=== PATIENT | male | born 1935 | race Caucasian/White ===

== ENCOUNTER 2016-11-21 08:46 | Outpatient (CLI) | payer MEDICARE ==
--- NOTE | 2016-11-21 11:52 | MRI ---
LUMBAR SPINE MRI NONCONTRAST; Date: 11/21/16 INDICATION: Lumbar radiculopathy. No prior comparison. FINDINGS: There is generalized marrow heterogeneity throughout the lumbar spine. Multilevel end plate degenera tive change with Schmorl's node formation present. There is Modic Type I end plate degenerative lopez ge of L2 inferiorly, L3 superiorly, and L5 superiorly. There is a focus of predominantly decreased T 1 signal with a few areas of interspersed T1 hyperintensity and T2 hyperintensity, round in morpholo gy, with internal marrow trabeculation noted involving the L1 vertebral body most consistent with an atypical hemangioma. Incidental note if a large retroperitoneal cyst on the right likely arising from right kidney, altho ugh incompletely visualized. Incidental note of involution of fat within the retroperitoneum posteri or to the crux. There is a small parenchymal cyst also seen within the more anterior aspect of the right kidney. L5-S1: Broad based disc osteophyte complex is present with mild narrowing of the central canal and crowding of the bilateral traversing S1 nerve roots. There is mild to moderate bilateral neural foraminal st enosis. L4-5: Disc osteophyte complex results in moderate narrowing of the central canal. There is moderate right and mild to moderate left foraminal stenosis. L3-4: Epidural lipomatosis along with disc osteophyte complex results in moderate to severe central canal stenosis. There is moderate right and mild left neural foraminal narrowing. L2-3: Moderate to severe central canal stenosis on the basis of disc osteophyte complex and epidural lipom atosis. There is mild to moderate left and mild right neural foraminal stenosis. L1-2: There is mild narrowing of the central canal due to disc osteophyte complex. Mild narrowing of the b ilateral neural foramina. Conus medullaris terminates at the inferior L1 level. IMPRESSION: 1. Multilevel degenerative changes throughout the lumbar spine, as outlined above, with superimpose d epidural lipomatosis. 2. Large right retroperitoneal cyst. This likely relates to a right renal cyst although is incomple tely characterized. Follow-up imaging may be obtained as clinically indicated. POS: HODA
--- NOTE | 2016-11-21 12:17 | RAD ---
LUMBAR SPINE FOUR VIEWS: History: 81-year-old male with lumbosacral radiculopathy. FINDINGS: Four views of the lumbar spine including flexion and extension standing lateral views. There is very markedly severe multilevel disc osteophytosis with disc space narrowing, particularly L2-3, L3-4, and L4-5. Very markedly severe multilevel facet arthrosis. No evidence for acute julian yasmin fracture. No evidence for significant malalignment or abnormal translation between flexion and extension. IMPRESSION: Very severe generalized spondylosis without abnormal translation. POS: OFF
== END 2016-11-21 08:47 | disposition home or self-care (01) ==
LOC: MRI 08:46
PROVIDERS: ATTEND Nurse Practitioner Family
DX: M47.26 Other spondylosis with radiculopathy, lumbar region (principal)
CPT/HCPCS: 72120; 72148

== ENCOUNTER 2017-08-09 08:54 | Outpatient (CLI) | payer MEDICARE | END 2017-08-09 08:55 | disposition home or self-care (01) | LOC: LABBT 08:54 | PROVIDERS: ATTEND Neurological Surgery | DX: Z01.818 Encounter for other preprocedural examination (principal); M48.061 Spinal stenosis, lumbar region without neurogenic claudication | CPT/HCPCS: 93005; 93010 ==

== ENCOUNTER 2017-08-15 05:45 | Day surgery (SDC) | payer MEDICARE ==
[2017-08-09 09:19] VITALS: BMI 37.3
--- NOTE | 2017-08-15 01:57 | HP ---
HISTORY OF PRESENT ILLNESS: Mr. Denson is a 81-year-old man, referred to us for evaluation of sever e spinal stenosis and neurogenic claudication with associated MRI performed at [facility] revealing s evere stenosis at L2-L4 centrally. He has attempted epidural steroid injections with Dr. Avila velazquez ith significant improvement. He is now here today after performing a month of physical therapy with also limited improvement. PAST MEDICAL HISTORY: Significant for chronic pain syndrome, diabetes, hypothyroidism, hypotension, BPH. CURRENT MEDICATIONS: Amitriptyline, anastrozole, , insulin, levothyroxine, metformin, nebivolol , valsartan, niacin, pravastatin, sitagliptin, tamsulosin, gabapentin. ALLERGIES: No known drug allergies. PAST SURGICAL HISTORY: Left knee surgery and right knee surgery. PHYSICAL EXAMINATION: On exam, patient is alert and oriented x3. Gait is slightly antalgic. Lower extremity motor strength is normal. IMPRESSION: Lumbar stenosis with neurogenic claudication. PLAN: Dr. Gonsales met with the patient, reviewed imaging, and advocated for an L3 through L4 decompres yasmin. He explained to the patient the risks, benefits, and alternatives to the procedure. The patie nt expressed understanding and would like to move forward with surgery as discussed. I do believe th e patient is mentally competent and capable of making medical decisions for himself and we will move forward with surgery as planned. Sony Malin PA-C, dictating for Dr. Gonsales.
[2017-08-15] MEDS ORDERED: Thrombin 5000 UNITS/5 ML VIAL ONE (06:31)
[2017-08-15] MEDS ORDERED: Bupivacaine PF 0.5% 30 ML VIAL ONE (06:31)
[2017-08-15] MEDS ORDERED: Bupivacaine HCl 0.5%/Epinephrine 1:200,000/PF 30 ml Vial ONE (06:32)
[2017-08-15] MEDS ORDERED: CEFAZOLIN/Water 2 GM/20 ML SYRINGE ONE ×2 (06:33→12:03)
[2017-08-15] MEDS ORDERED: Fentanyl 100 MCG/2 ML VIAL ONE ×3 (07:24→10:30)
[2017-08-15] MEDS ORDERED: Albuterol Sulfate HFA (OR ONLY) ONE (08:21)
[2017-08-15] MEDS ORDERED: Tamsulosin HCl 0.4 MG CAP ONE (09:52)
--- NOTE | 2017-08-15 11:24 | OP ---
DATE OF PROCEDURE: 08/15/2017 SURGEON: Abbe Gonsales M.D. MILLINERY WORKER: Sony Malin PA-C. INDICATION: Pain. DIAGNOSIS: Lumbar stenosis, secondary to epidural lipomatosis. PROCEDURE: L2 through L4 lumbar decompression. ANESTHESIA: General. TECHNIQUE: The patient was brought into the operating room and placed on general anesthesia. He was flipped from a supine or prone position on the operating room table. A linear incision was planned spanning L2 through L4. After prepping and draping and after an appropriate operative pause, the inc ision was created. The soft tissues were swept away from midline. Self-retaining retractors were pl aced in the wound for optimal exposure. After confirming the appropriate level with C-arm fluoroscop y, an Adson rongeur was used to remove the spinous process of L3 and the superior aspect of L4 and th e inferior aspect of L2. High-speed cutting drill bit as well as 2, 3, and 4-mm Kerrisons were then used to perform laminectomies, which extended laterally to encompass the medial aspect of the facet j oints. After removing the yellow ligament, we encountered a copious degree of epidural fat, which wa s carefully suctioned away into the thecal sac was well decompressed. The wound was irrigated. Hemo stasis was maintained throughout. The wound was then closed in anatomic layers and a pressure dressi ng was applied. There were no known procedural complications.
[2017-08-15] MEDS ORDERED: Glycopyrrolate 0.2 MG/ML 5 ML SYRINGE ONE (14:20)
[2017-08-15] MEDS ORDERED: PROPOFOL 200 MG/20 ML VIAL ONE (14:20)
[2017-08-15] MEDS ORDERED: Esmolol 100 MG/10 ML VIAL ONE (14:20)
[2017-08-15] MEDS ORDERED: PROVENTIL INHALER 6.7 G (200 INHALATIONS) ONE (14:20)
[2017-08-15] MEDS ORDERED: Metoclopramide HCl 10 MG/2 ML VIAL ONE (14:20)
[2017-08-15] MEDS ORDERED: Lidocaine 1% PF 5 ML VIAL ONE ×2 (14:20)
[2017-08-15] MEDS ORDERED: Ondansetron HCl/PF 4 MG/2 ML Vial ONE (14:20)
[2017-08-15] MEDS ORDERED: ePHEDrine/0.9% NaCl/PF SYRINGE 50 mg/10 ml ONE (14:20)
== END 2017-08-15 12:25 | disposition home or self-care (01) ==
LOC: SDC 05:45
PROVIDERS: ATTEND Neurological Surgery
PROC: 01NB0ZZ Release Lumbar Nerve, Open Approach (ICD-10-PCS; principal; 2017-08-15)
DX: E88.2 Lipomatosis, not elsewhere classified (principal); M48.062 Spinal stenosis, lumbar region with neurogenic claudication; E11.9 Type 2 diabetes mellitus without complications; G89.4 Chronic pain syndrome; E03.9 Hypothyroidism, unspecified; Z79.82 Long term (current) use of aspirin; Z79.899 Other long term (current) drug therapy; Z79.84 Long term (current) use of oral hypoglycemic drugs
CPT/HCPCS: 76001; 96374; 96375; J0131; J0670; J2001; J2405; J2704; J2765; J3010; S0020

== ENCOUNTER 2021-01-14 09:33 | Outpatient (CLI) | payer MEDICARE ==
[2021-01-14] MEDS ORDERED: Magnevist 469MG/ML 20 ML VIAL ONE (10:15)
== END 2021-01-14 09:34 | disposition home or self-care (01) ==
LOC: BICMRI 09:33
PROVIDERS: ATTEND Internal Medicine Gastroenterology
DX: R79.89 Other specified abnormal findings of blood chemistry (principal); N28.1 Cyst of kidney, acquired; K86.2 Cyst of pancreas; K57.30 Diverticulosis of large intestine without perforation or abscess without bleeding
CPT/HCPCS: 74183; 82565; A9579

== ENCOUNTER 2022-03-02 10:50 | Outpatient (CLI) | payer MEDICARE ==
[2022-03-02 12:50] LABS: #Eosinphils 0.1 10x3/uL (0.0-0.5); #Monocytes 0.6 10x3/uL (0.0-1.1); #Neutrophils 5.5 10x3/uL (1.5-8.4); %Basophils 0.3 % (0.0-2.0); %Eosinophils 1.9 % (0.0-6.0); %Lymphocytes 14.4 % (18.0-47.0); %Monocytes 7.8 % (0.0-10.0); %Neutrophils 75.2 % (40.0-75.0); Hemoglobin 13.6 g/dL (13.5-17.5); Mean Corpuscular HGB CONC 32.3 g/dL (32.0-36.0); Mean Corpuscular Hemoglobin 30.4 pg (27.0-33.0); Mean Corpuscular Volume 94.2 fl (81.2-95.1); Mean Platelet Volume 11.8 fl (7.4-10.4); Platelet Count 199 10x3/uL (150-450); RBC Distribution Width 13.8 % (11.5-14.5); Red Blood Cell (RBC) Count 4.47 10x6/uL (4.32-5.72); White Blood Cell (WBC) Count 7.3 10x3/uL (3.5-10.5)
[2022-03-02 12:58] LABS: ALT (SGPT) 64 U/L (8-55); AST (SGOT) 71 U/L (5-34); Albumin 3.7 g/dL (3.4-4.8); Alkaline Phosphatase 276 U/L (40-110); Anion Gap 14 mmol/L (10-20); BUN (Urea Nitrogen) 12 mg/dL (8.4-25.7); Bilirubin, Direct 0.2 mg/dL (0.1-0.3); Bilirubin, Total 0.5 mg/dL (0.2-1.2); Calc. Creatinine Clearance 0 mL/min (70-130); Calcium 9.4 mg/dL (7.8-10.44); Carbon Dioxide 26 mmol/L (23-31); Chloride 105 mmol/L (98-107); Estimated GFR 86; Glucose 117 mg/dL (83-110); Potassium 4.4 mmol/L (3.5-5.1); Protein, Total 6.9 g/dL (5.8-8.1); Sodium 141 mmol/L (136-145)
== END 2022-03-02 10:51 | disposition home or self-care (01) ==
LOC: LABBT 10:50
PROVIDERS: ATTEND Surgery
DX: Z01.818 Encounter for other preprocedural examination (principal); K80.20 Calculus of gallbladder without cholecystitis without obstruction
CPT/HCPCS: 80048; 80076; 85025; 93005; 93010

== ENCOUNTER 2022-03-07 06:15 | Day surgery (SDC) | payer MEDICARE ==
[2022-03-06 13:25] VITALS: BMI 32.8
[2022-03-07] MEDS ORDERED: Bupivacaine/Epinephrine 0.25% 30 ML VIAL ONE (08:27)
[2022-03-07] MEDS ORDERED: Iopamidol 30 ML ONE (08:27)
[2022-03-07] MEDS ORDERED: CEFAZOLIN 2 GM VIAL ONE (09:19)
[2022-03-07] MEDS ORDERED: Sodium Chloride 0.9% 100 ML ONE (09:19)
[2022-03-07] MEDS ORDERED: fentaNYL PF 100 MCG/2 ML SYRINGE ONE (09:21)
[2022-03-07] MEDS ORDERED: Rocuronium Bromide 10 MG/ML (10ML VIAL) ONE (09:34)
[2022-03-07] MEDS ORDERED: Ondansetron PF 4 MG/2 ML Vial ONE (09:34)
[2022-03-07] MEDS ORDERED: ePHEDrine 50 MG/ML VIAL ONE (09:34)
[2022-03-07] MEDS ORDERED: Glycopyrrolate 0.2 MG/ML 5 ML SYRINGE ONE (09:34)
[2022-03-07] MEDS ORDERED: Lidocaine 1% PF 5 ML VIAL ONE (09:34)
[2022-03-07] MEDS ORDERED: PHENYLEPHRINE-NS 100 MCG/ML 10 ML SYRINGE ONE (09:34)
[2022-03-07] MEDS ORDERED: PROPOFOL 200 MG/20 ML VIAL ONE (09:34)
[2022-03-07] MEDS ORDERED: NEOSTIGMINE 3 MG/3 ML SYR 3 MG/3 ML SYRINGE ONE (09:34)
[2022-03-07] MEDS ORDERED: Fentanyl 100 MCG/2 ML VIAL ONE (11:13)
== END 2022-03-07 13:20 | disposition home or self-care (01) ==
LOC: SDC 06:15
PROVIDERS: ATTEND Surgery
PROC: 0FT44ZZ Resection of Gallbladder, Percutaneous Endoscopic Approach (ICD-10-PCS; principal; 2022-03-07)
PROC: 8E0W4CZ Robotic Assisted Procedure of Trunk Region, Percutaneous Endoscopic Approach (ICD-10-PCS; 2022-03-07)
DX: K80.10 Calculus of gallbladder with chronic cholecystitis without obstruction (principal); E11.9 Type 2 diabetes mellitus without complications; Z79.4 Long term (current) use of insulin; Z79.84 Long term (current) use of oral hypoglycemic drugs; Z79.890 Hormone replacement therapy; Z79.899 Other long term (current) drug therapy
CPT/HCPCS: 47562; 82962; C1776; 36416; 88304; J2405; J2704; J3010; J3490; Q9967

== ENCOUNTER 2022-10-03 15:20 | Emergency (ER) | payer MEDICARE ==
[2022-10-03 17:06] LABS: #Eosinphils 0.1 thou/uL (0.0-0.7); #Monocytes 1.1 thou/uL (0.11-0.59); #Neutrophils 8.5 thou/uL (1.40-6.50); %Basophils 0.1 % (0.0-1.0); %Eosinophils 0.9 % (0.0-10.0); %Lymphocytes 4.2 % (21.0-51.0); %Monocytes 10.4 % (0.0-10.0); %Neutrophils 83.9 % (42.0-75.0); Hematocrit 35.9 % (42.0-52.0); Hemoglobin 11.5 g/dL (14.0-18.0); Mean Corpuscular Hemoglobin 27.4 pg (27.0-31.0); Mean Corpuscular Volume 85.5 fl (78.0-98.0); Mean Platelet Volume 11.9 fL (7.4-10.4); Platelet Count 204 10x3/uL (130-400); RBC Distribution Width 13.4 % (11.5-14.5); White Blood Cell (WBC) Count 10.2 10x3/uL (4.8-10.8)
[2022-10-03 17:28] LABS: ALT (SGPT) 23 U/L (8-55); AST (SGOT) 65 U/L (5-34); Alkaline Phosphatase 255 U/L (40-110); Anion Gap 13 mmol/L (10-20); BUN (Urea Nitrogen) 16 mg/dL (8.4-25.7); Bilirubin, Total 0.6 mg/dL (0.2-1.2); Calc. Creatinine Clearance 0 mL/min (70-130); Calcium 8.9 mg/dL (7.8-10.44); Carbon Dioxide 23 mmol/L (23-31); Chloride 100 mmol/L (98-107); Estimated GFR 85; Globulin 3.7 g/dL (2.4-3.5); Glucose 68 mg/dL (83-110); Lipase 16 U/L (8-78); Potassium 4.1 mmol/L (3.5-5.1); Protein, Total 6.7 g/dL (5.8-8.1); Sodium 132 mmol/L (136-145)
[2022-10-03 18:59] LABS: Bacteria/HPF None Seen HPF (None Seen); Bilirubin Negative (Negative); Blood, Urine 1+ (Negative); CAUTI Indications for Culture Pelvic or flank pain; Clarity Clear (Clear); Glucose, Urine (Dipstick) Greater than 1000 mg/dL (Negative); Ketone, Urine Negative (Negative); Leukocyte 25 Leu/uL (Negative); Nitrite Negative (Negative); Protein, Urine (Dipstick) 10 mg/dL (Neg-Trace); RBC/HPF 0-3 HPF (0-3); Specific Gravity, Urine 1.018 (1.002-1.036); Squamous Epithelial 0-3 HPF (0-3); Urobilinogen Normal mg/dL (Less than 2); WBC/HPF 0-3 HPF (0-3); pH, Urine 5.5 (5.0-9.0)
[2022-10-03 19:01] LABS: Urine Culture Reflex No No
== END 2022-10-03 20:47 | disposition home or self-care (01) ==
LOC: ERS 15:20
DX: C78.7 Secondary malignant neoplasm of liver and intrahepatic bile duct (principal); E11.9 Type 2 diabetes mellitus without complications; Z87.891 Personal history of nicotine dependence
CPT/HCPCS: 36415; 74177; 80053; 81001; 83690; 85025

== ENCOUNTER 2022-10-05 20:23 | Inpatient (IN) | payer MEDICARE ==
[2022-10-05 20:50] LABS: #Eosinphils 0.1 thou/uL (0.0-0.7); #Monocytes 1.2 thou/uL (0.11-0.59); #Neutrophils 11.3 thou/uL (1.40-6.50); %Basophils 0.2 % (0.0-1.0); %Eosinophils 0.4 % (0.0-10.0); %Neutrophils 85.9 % (42.0-75.0); Hematocrit 39.4 % (42.0-52.0); Hemoglobin 12.5 g/dL (14.0-18.0); Mean Corpuscular HGB CONC 31.7 g/dL (32.0-36.0); Mean Corpuscular Hemoglobin 27.4 pg (27.0-31.0); Mean Corpuscular Volume 86.2 fl (78.0-98.0); Platelet Count 298 10x3/uL (130-400); RBC Distribution Width 13.7 % (11.5-14.5); Red Blood Cell (RBC) Count 4.57 mill/uL (4.70-6.10); White Blood Cell (WBC) Count 13.1 10x3/uL (4.8-10.8)
[2022-10-05 21:10] LABS: Bilirubin Negative (Negative); Blood, Urine Negative (Negative); CAUTI Indications for Culture Alt mental st,lethar; Clarity Clear (Clear); Glucose, Urine (Dipstick) Greater than 1000 mg/dL (Negative); Ketone, Urine Negative (Negative); Leukocyte Negative Leu/uL (Negative); Mucous/LPF Rare LPF (<2+); Nitrite Negative (Negative); Protein, Urine (Dipstick) 20 mg/dL (Neg-Trace); RBC/HPF 0-3 HPF (0-3); Specific Gravity, Urine 1.019 (1.002-1.036); Squamous Epithelial 0-3 HPF (0-3); WBC/HPF 0-3 HPF (0-3); pH, Urine 5.5 (5.0-9.0)
[2022-10-05 21:14] LABS: ALT (SGPT) 19 U/L (8-55); AST (SGOT) 66 U/L (5-34); Albumin 3.1 g/dL (3.4-4.8); Alkaline Phosphatase 293 U/L (40-110); Anion Gap 15 mmol/L (10-20); BUN (Urea Nitrogen) 11 mg/dL (8.4-25.7); Bilirubin, Total 0.5 mg/dL (0.2-1.2); Calc. Creatinine Clearance 0 mL/min (70-130); Calcium 9.2 mg/dL (7.8-10.44); Carbon Dioxide 23 mmol/L (23-31); Chloride 104 mmol/L (98-107); Estimated GFR 88; Potassium 3.3 mmol/L (3.5-5.1); Protein, Total 7.1 g/dL (5.8-8.1); Sodium 139 mmol/L (136-145)
[2022-10-05 21:20] LABS: Bacteria/HPF 1+ HPF (None Seen)
[2022-10-05 21:21] LABS: Urine Culture Reflex No No
[2022-10-05 21:32] LABS: Glucose 31 mg/dL (83-110)
[2022-10-05 21:51] LABS: Troponin I 0.019 ng/mL (< 0.028)
[2022-10-05] MEDS ORDERED: Glucagon 1 MG/ML KIT IM PRN (23:08)
[2022-10-05] MEDS ORDERED: Ondansetron ODT 4 MG TAB PO PRN (23:08)
[2022-10-05] MEDS ORDERED: Acetaminophen 650 MG Suppository PR PRN (23:08)
[2022-10-05] MEDS ORDERED: Dextrose 50% Abboject 50 ML SYRINGE SLOW IVP PRN (23:08)
[2022-10-05] MEDS ORDERED: Dextrose 5% in Water 1,000 ML IV PRN (23:08)
[2022-10-05] MEDS ORDERED: Acetaminophen 325 MG TAB PO PRN (23:08)
[2022-10-05] MEDS ORDERED: Potassium Chloride 20 MEQ TAB PO SCH (23:45)
[2022-10-05] MEDS ORDERED: Dextrose 10% in Water 1,000 ML IV SCH (23:45)
[2022-10-05] MEDS ORDERED: Electrolyte Replacement Protocol 1 EACH FS SCH (23:45)
[2022-10-06 01:37] LABS: Phosphorus 2.5 mg/dL (2.3-4.7)
[2022-10-06 04:09] LABS: #Eosinphils 0.1 thou/uL (0.0-0.7); #Monocytes 1.1 thou/uL (0.11-0.59); #Neutrophils 9.2 thou/uL (1.40-6.50); %Basophils 0.1 % (0.0-1.0); %Eosinophils 0.9 % (0.0-10.0); %Lymphocytes 5.6 % (21.0-51.0); %Monocytes 9.6 % (0.0-10.0); %Neutrophils 83.5 % (42.0-75.0); Hematocrit 35.1 % (42.0-52.0); Hemoglobin 11.5 g/dL (14.0-18.0); Mean Corpuscular HGB CONC 32.8 g/dL (32.0-36.0); Mean Corpuscular Hemoglobin 27.4 pg (27.0-31.0); Mean Platelet Volume 11.4 fL (7.4-10.4); Platelet Count 238 10x3/uL (130-400); RBC Distribution Width 13.7 % (11.5-14.5)
[2022-10-06 04:12] LABS: Mean Corpuscular Volume 83.6 fl (78.0-98.0)
[2022-10-06 04:38] LABS: Anion Gap 13 mmol/L (10-20); BUN (Urea Nitrogen) 9 mg/dL (8.4-25.7); Calc. Creatinine Clearance 104 mL/min (70-130); Calcium 8.8 mg/dL (7.8-10.44); Carbon Dioxide 26 mmol/L (23-31); Chloride 101 mmol/L (98-107); Estimated GFR 92; Glucose 71 mg/dL (83-110); Sodium 137 mmol/L (136-145)
[2022-10-06] MEDS: Ondansetron PF 4 MG/2 ML Vial IVP PRN ×2 (04:42→15:51)
[2022-10-06] MEDS: Potassium Chloride 20 MEQ in Premix Bag 1 BAG IVPB SCH ×2 (06:23→10:06)
[2022-10-06] MEDS: Dextrose 10% in Water 1,000 ML IV SCH ×2 (06:24→10:07)
[2022-10-06] MEDS ORDERED: Magnesium 2 GM/50 ML(in water) 2 GM in Premix Bag 1 BAG IVPB SCH (08:00)
[2022-10-06 11:17] LABS: Anion Gap 14 mmol/L (10-20); BUN (Urea Nitrogen) 7 mg/dL (8.4-25.7); Calc. Creatinine Clearance 100 mL/min (70-130); Calcium 8.8 mg/dL (7.8-10.44); Carbon Dioxide 24 mmol/L (23-31); Chloride 100 mmol/L (98-107); Estimated GFR 90; Glucose 139 mg/dL (83-110); Potassium 3.5 mmol/L (3.5-5.1); Sodium 134 mmol/L (136-145)
[2022-10-06] MEDS: Dextrose 5 % And 0.9 % NaCl 1,000 ML IV SCH (18:51)
[2022-10-06] MEDS ORDERED: Metoclopramide HCl 10 MG TAB PO PRN (19:58)
[2022-10-06] MEDS ORDERED: Morphine 2 MG/ML VIAL SLOW IVP PRN (21:00)
[2022-10-07] MEDS: Ondansetron PF 4 MG/2 ML Vial IVP PRN ×2 (03:22→09:34)
[2022-10-07] MEDS: Dextrose 5 % And 0.9 % NaCl 1,000 ML IV SCH (08:38)
[2022-10-07] MEDS ORDERED: Gabapentin 300 MG CAP PO SCH ×2 (10:00→21:00)
[2022-10-07] MEDS: Anastrozole 1 MG TAB PO SCH (10:20)
[2022-10-07] MEDS: Tamsulosin HCl 0.4 MG CAP PO SCH (10:20)
[2022-10-07] MEDS: Amitriptyline HCl 25 MG TAB PO SCH (10:20)
[2022-10-07] MEDS ORDERED: Promethazine HCl 25 MG in Sodium Chloride 0.9% 50 ML IVPB PRN (10:21)
[2022-10-07] MEDS: Fish Oil 1,000 MG CAP PO SCH ×2 (10:22→10:42)
[2022-10-07] MEDS: Cholecalciferol 1,000 UNITS (25 MCG) TAB PO SCH ×2 (10:26→10:42)
[2022-10-07] MEDS ORDERED: Iopamidol-370 76% 500 ML MDV (1 ML CHARGE) ONE (11:42)
[2022-10-07] MEDS ORDERED: Metoclopramide HCl 10 MG/2 ML VIAL IVP SCH ×2 (16:00→22:00)
[2022-10-07] MEDS ORDERED: Furosemide 40 MG/4 ML VIAL SLOW IVP SCH (16:30)
[2022-10-07] MEDS ORDERED: Piperacillin/Tazobactam 4.5 GM in Sodium Chloride 0.9% 100 ML IVPB SCH ×2 (16:45→22:00)
[2022-10-07] MEDS ORDERED: Piperacillin/Tazobactam 3.375 GM in Sodium Chloride 0.9% 100 ML IVPB SCH (17:15)
[2022-10-07 17:57] LABS: #Monocytes 0.9 thou/uL (0.11-0.59); #Neutrophils 17.1 thou/uL (1.40-6.50); %Basophils 0.1 % (0.0-1.0); %Eosinophils 0.1 % (0.0-10.0); %Lymphocytes 2.3 % (21.0-51.0); %Monocytes 4.8 % (0.0-10.0); %Neutrophils 92.1 % (42.0-75.0); Hematocrit 42.1 % (42.0-52.0); Hemoglobin 13.7 g/dL (14.0-18.0); Mean Corpuscular HGB CONC 32.5 g/dL (32.0-36.0); Mean Corpuscular Hemoglobin 27.4 pg (27.0-31.0); Mean Corpuscular Volume 84.2 fl (78.0-98.0); Mean Platelet Volume 10.9 fL (7.4-10.4); Platelet Count 337 10x3/uL (130-400); RBC Distribution Width 13.7 % (11.5-14.5); White Blood Cell (WBC) Count 18.6 10x3/uL (4.8-10.8)
[2022-10-07 18:28] LABS: ALT (SGPT) 18 U/L (8-55); AST (SGOT) 32 U/L (5-34); Albumin 3.1 g/dL (3.4-4.8); Alkaline Phosphatase 257 U/L (40-110); Anion Gap 19 mmol/L (10-20); BUN (Urea Nitrogen) 13 mg/dL (8.4-25.7); Bilirubin, Total 0.9 mg/dL (0.2-1.2); Calc. Creatinine Clearance 63 mL/min (70-130); Calcium 9.5 mg/dL (7.8-10.44); Carbon Dioxide 28 mmol/L (23-31); Chloride 96 mmol/L (98-107); Estimated GFR 65; Globulin 4.4 g/dL (2.4-3.5); Glucose 209 mg/dL (83-110); Potassium 3.7 mmol/L (3.5-5.1); Protein, Total 7.5 g/dL (5.8-8.1); Sodium 139 mmol/L (136-145)
[2022-10-07] MEDS ORDERED: Niacin 500 MG TAB PO SCH (21:00)
[2022-10-07 21:07] LABS: Lactic Acid 5.4 mmol/L (0.5-2.2)
[2022-10-07] MEDS: Piperacillin/Tazobactam 3.375 GM in Sodium Chloride 0.9% 100 ML IVPB SCH (22:35)
[2022-10-08 00:10] LABS: Actual Bicarbonate (HCO3a) 30.2 mEq/L (22-28); CO2 Tension 42.2 mmHg (35.0-45.0); Calcium, Ionized (arterial) 1.17 mmol/L (1.12-1.30); Carboxyhemoglobin (COHb) 2.1 gm% (0.0-3.0); Hematocrit-ABG 43 % (42.0-52.0); Hemoglobin (Hb) 14.7 g/dL (14.0-18.0); Potassium - ABG Lab 3.81 mmol/L (3.70-5.30); pH, Arterial 7.473 (7.35-7.45)
[2022-10-08 00:12] LABS: Puncture Site LRA
[2022-10-08] MEDS: Lactated Ringer's 1,000 ML IV SCH ×3 (00:58→17:32)
[2022-10-08] MEDS: Dextrose 5 % And 0.9 % NaCl 1,000 ML IV SCH (00:59)
[2022-10-08 03:54] LABS: #Monocytes 0.7 thou/uL (0.11-0.59); #Neutrophils 13.7 thou/uL (1.40-6.50); %Basophils 0.1 % (0.0-1.0); %Lymphocytes 3.1 % (21.0-51.0); %Monocytes 4.6 % (0.0-10.0); %Neutrophils 91.6 % (42.0-75.0); Hematocrit 38.2 % (42.0-52.0); Hemoglobin 12.6 g/dL (14.0-18.0); Mean Corpuscular Hemoglobin 27.8 pg (27.0-31.0); Mean Corpuscular Volume 84.1 fl (78.0-98.0); Mean Platelet Volume 11.3 fL (7.4-10.4); Platelet Count 261 10x3/uL (130-400); RBC Distribution Width 13.8 % (11.5-14.5); Red Blood Cell (RBC) Count 4.54 mill/uL (4.70-6.10); White Blood Cell (WBC) Count 14.9 10x3/uL (4.8-10.8)
[2022-10-08 04:13] LABS: Lactic Acid 2.9 mmol/L (0.5-2.2)
[2022-10-08 04:19] LABS: ALT (SGPT) 16 U/L (8-55); AST (SGOT) 27 U/L (5-34); Albumin 2.8 g/dL (3.4-4.8); Alkaline Phosphatase 211 U/L (40-110); Anion Gap 18 mmol/L (10-20); BUN (Urea Nitrogen) 20 mg/dL (8.4-25.7); Bilirubin, Total 0.9 mg/dL (0.2-1.2); Calc. Creatinine Clearance 43 mL/min (70-130); Calcium 9.1 mg/dL (7.8-10.44); Carbon Dioxide 28 mmol/L (23-31); Chloride 96 mmol/L (98-107); Estimated GFR 44; Glucose 214 mg/dL (83-110); Potassium 3.9 mmol/L (3.5-5.1); Protein, Total 6.8 g/dL (5.8-8.1); Sodium 138 mmol/L (136-145)
[2022-10-08] MEDS: Piperacillin/Tazobactam 3.375 GM in Sodium Chloride 0.9% 100 ML IVPB SCH ×2 (05:29→14:01)
[2022-10-08] MEDS: Levothyroxine Sodium 125 MCG TAB PO SCH (06:40)
[2022-10-08] MEDS ORDERED: Gabapentin 300 MG CAP PO SCH (09:00)
[2022-10-08] MEDS: Amitriptyline HCl 25 MG TAB PO SCH (09:10)
[2022-10-08] MEDS: Anastrozole 1 MG TAB PO SCH (09:10)
[2022-10-08] MEDS: Nebivolol HCl 5 MG TAB PO SCH (09:10)
[2022-10-08] MEDS: Cholecalciferol 1,000 UNITS (25 MCG) TAB PO SCH (09:10)
[2022-10-08] MEDS: Tamsulosin HCl 0.4 MG CAP PO SCH (09:10)
[2022-10-08] MEDS: Fish Oil 1,000 MG CAP PO SCH (09:10)
[2022-10-08] MEDS ORDERED: D5W-AA 4.25% with LYTES 1,000 ML IV SCH (18:30)
[2022-10-08] MEDS ORDERED: Fentanyl 250 MCG/5 ML VIAL ONE (20:43)
[2022-10-08] MEDS ORDERED: Phenylephrine 10 MG/ML VIAL ONE (20:43)
[2022-10-08] MEDS ORDERED: Albumin 5% 250 ML ONE (20:43)
[2022-10-08] MEDS ORDERED: Lidocaine 1% PF 5 ML VIAL ONE (21:00)
[2022-10-08] MEDS ORDERED: Rocuronium Bromide 10 MG/ML (10ML VIAL) ONE (21:00)
[2022-10-08] MEDS ORDERED: PROPOFOL 200 MG/20 ML VIAL ONE (21:00)
[2022-10-08] MEDS ORDERED: Ondansetron PF 4 MG/2 ML Vial ONE (21:00)
[2022-10-08] MEDS ORDERED: Dexamethasone 20 MG/5 ML VIAL ONE (21:00)
[2022-10-08] MEDS ORDERED: Piperacillin/Tazobactam 3.375 GM VIAL ONE (21:22)
[2022-10-08] MEDS ORDERED: SUGAMMADEX SODIUM 200 MG/2 ML VIAL ONE (21:41)
[2022-10-08] MEDS ORDERED: fentaNYL PF 100 MCG/2 ML SYRINGE ONE (23:02)
[2022-10-08] MEDS ORDERED: Ondansetron HCl/PF 4 MG/2 ML Vial IVP PRN (23:12)
[2022-10-08] MEDS ORDERED: Promethazine HCl 25 MG/ML VIAL IM PRN ×2 (23:12→23:23)
[2022-10-08] MEDS ORDERED: Naloxone HCl 0.4 mg/ml Vial IV PRN (23:23)
[2022-10-08] MEDS ORDERED: diphenhydrAMINE 25 MG CAP PO PRN (23:23)
[2022-10-08] MEDS ORDERED: HYDROmorphone 10 mg/100 ml CADD IVPB PRN (23:23)
[2022-10-08] MEDS ORDERED: Ondansetron PF 4 MG/2 ML Vial IVP PRN (23:23)
[2022-10-08] MEDS ORDERED: diphenhydrAMINE 50 MG/ML VIAL IM PRN (23:23)
[2022-10-08] MEDS ORDERED: diphenhydrAMINE 50 MG/ML VIAL IVP PRN (23:23)
[2022-10-08] MEDS ORDERED: Communication Order-Pharmacy FS SCH (23:30)
[2022-10-08] MEDS ORDERED: fentaNYL 50 mcg/mL 1 mL Vial ONE (23:49)
[2022-10-09] MEDS ORDERED: fentaNYL 50 mcg/mL 1 mL Vial ONE (00:19)
[2022-10-09] MEDS: Piperacillin/Tazobactam 3.375 GM in Sodium Chloride 0.9% 100 ML IVPB SCH ×4 (01:26→21:00)
[2022-10-09] MEDS: Pantoprazole 40 MG VIAL IVP SCH ×3 (01:26→20:51)
[2022-10-09 04:11] LABS: #Monocytes 0.5 thou/uL (0.11-0.59); #Neutrophils 13.8 thou/uL (1.40-6.50); %Basophils 0.1 % (0.0-1.0); %Eosinophils 0.1 % (0.0-10.0); %Lymphocytes 2.8 % (21.0-51.0); %Monocytes 3.4 % (0.0-10.0); %Neutrophils 93.3 % (42.0-75.0); Hematocrit 36.6 % (42.0-52.0); Hemoglobin 11.5 g/dL (14.0-18.0); Mean Corpuscular HGB CONC 31.4 g/dL (32.0-36.0); Mean Corpuscular Hemoglobin 27.6 pg (27.0-31.0); Mean Platelet Volume 11.3 fL (7.4-10.4); Platelet Count 237 10x3/uL (130-400); RBC Distribution Width 14.2 % (11.5-14.5); Red Blood Cell (RBC) Count 4.16 mill/uL (4.70-6.10); White Blood Cell (WBC) Count 14.8 10x3/uL (4.8-10.8)
[2022-10-09 04:40] LABS: ALT (SGPT) 16 U/L (8-55); AST (SGOT) 35 U/L (5-34); Albumin 2.7 g/dL (3.4-4.8); Alkaline Phosphatase 174 U/L (40-110); Anion Gap 15 mmol/L (10-20); BUN (Urea Nitrogen) 26 mg/dL (8.4-25.7); Bilirubin, Total 1.1 mg/dL (0.2-1.2); Calc. Creatinine Clearance 50 mL/min (70-130); Calcium 8.8 mg/dL (7.8-10.44); Carbon Dioxide 34 mmol/L (23-31); Chloride 96 mmol/L (98-107); Estimated GFR 55; Globulin 3.7 g/dL (2.4-3.5); Glucose 213 mg/dL (83-110); Magnesium 2.3 mg/dL (1.6-2.6); Phosphorus 4.1 mg/dL (2.3-4.7); Potassium 3.6 mmol/L (3.5-5.1); Protein, Total 6.4 g/dL (5.8-8.1); Sodium 141 mmol/L (136-145)
[2022-10-09] MEDS: Levothyroxine Sodium 125 MCG TAB PO SCH (07:06)
[2022-10-09] MEDS: Lactated Ringer's 1,000 ML IV SCH ×2 (10:00)
[2022-10-09] MEDS: Tamsulosin HCl 0.4 MG CAP PO SCH (10:02)
[2022-10-09] MEDS: Nebivolol HCl 5 MG TAB PO SCH (10:02)
[2022-10-09] MEDS: Fish Oil 1,000 MG CAP PO SCH (10:02)
[2022-10-09] MEDS: Anastrozole 1 MG TAB PO SCH (10:02)
[2022-10-09] MEDS: Amitriptyline HCl 25 MG TAB PO SCH (10:02)
[2022-10-09] MEDS: 1/2 NS w/KCL 20 mEq 1,000 ML IV SCH ×2 (12:18→21:03)
[2022-10-09] MEDS: HumaLOG 300 UNITS/3 ML VIAL SC PRN ×3 (12:22→20:58)
[2022-10-09] MEDS: D5W-AA 4.25% with LYTES 1,000 ML IV SCH (15:56)
[2022-10-10] MEDS: 1/2 NS w/KCL 20 mEq 1,000 ML IV SCH (03:45)
[2022-10-10 05:35] LABS: #Eosinphils 0.2 thou/uL (0.0-0.7); #Monocytes 0.6 thou/uL (0.11-0.59); #Neutrophils 12.2 thou/uL (1.40-6.50); %Basophils 0.1 % (0.0-1.0); %Eosinophils 1.5 % (0.0-10.0); %Monocytes 4.4 % (0.0-10.0); %Neutrophils 89.5 % (42.0-75.0); Hematocrit 34.8 % (42.0-52.0); Hemoglobin 10.7 g/dL (14.0-18.0); Mean Corpuscular HGB CONC 30.7 g/dL (32.0-36.0); Mean Corpuscular Hemoglobin 27.7 pg (27.0-31.0); Mean Corpuscular Volume 90.2 fl (78.0-98.0); Mean Platelet Volume 11.3 fL (7.4-10.4); Platelet Count 195 10x3/uL (130-400); RBC Distribution Width 14.2 % (11.5-14.5); Red Blood Cell (RBC) Count 3.86 mill/uL (4.70-6.10); White Blood Cell (WBC) Count 13.6 10x3/uL (4.8-10.8)
[2022-10-10] MEDS: Levothyroxine Sodium 125 MCG TAB PO SCH (05:47)
[2022-10-10] MEDS: Piperacillin/Tazobactam 3.375 GM in Sodium Chloride 0.9% 100 ML IVPB SCH ×3 (05:47→21:35)
[2022-10-10] MEDS: HumaLOG 300 UNITS/3 ML VIAL SC PRN ×5 (05:48→23:56)
[2022-10-10] MEDS: D5W-AA 4.25% with LYTES 1,000 ML IV SCH ×2 (05:49→18:39)
[2022-10-10 06:01] LABS: ALT (SGPT) 15 U/L (8-55); AST (SGOT) 38 U/L (5-34); Albumin 2.6 g/dL (3.4-4.8); Alkaline Phosphatase 145 U/L (40-110); Anion Gap 11 mmol/L (10-20); BUN (Urea Nitrogen) 27 mg/dL (8.4-25.7); Bilirubin, Total 1.1 mg/dL (0.2-1.2); Calc. Creatinine Clearance 65 mL/min (70-130); Calcium 8.5 mg/dL (7.8-10.44); Carbon Dioxide 34 mmol/L (23-31); Chloride 100 mmol/L (98-107); Estimated GFR 78; Globulin 3.3 g/dL (2.4-3.5); Glucose 206 mg/dL (83-110); Protein, Total 5.9 g/dL (5.8-8.1); Sodium 141 mmol/L (136-145)
[2022-10-10] MEDS ORDERED: LYTES IV SCH (09:00)
[2022-10-10] MEDS ORDERED: D5W AA 4.25% IV SCH (09:00)
[2022-10-10] MEDS ORDERED: HUMULIN R IV SCH (09:00)
[2022-10-10] MEDS: Fish Oil 1,000 MG CAP PO SCH (09:25)
[2022-10-10] MEDS: Pantoprazole 40 MG VIAL IVP SCH ×2 (09:26→20:48)
[2022-10-10] MEDS: Nebivolol HCl 5 MG TAB PO SCH (09:26)
[2022-10-10] MEDS: Tamsulosin HCl 0.4 MG CAP PO SCH (09:27)
[2022-10-10] MEDS: Anastrozole 1 MG TAB PO SCH (09:27)
[2022-10-10] MEDS: Amitriptyline HCl 25 MG TAB PO SCH (09:27)
[2022-10-10] MEDS ORDERED: HumaLOG 300 UNITS/3 ML VIAL SC SCH (09:30)
[2022-10-10] MEDS: Sodium Chloride 0.9% 1,000 ML IV SCH (11:08)
[2022-10-10 11:26] LABS: O2 Tension (PaO2), arterial 45.8 mmHg (> 60.0)
[2022-10-11] MEDS: HumaLOG 300 UNITS/3 ML VIAL SC PRN ×3 (04:01→17:45)
[2022-10-11 04:17] LABS: #Monocytes 0.8 thou/uL (0.11-0.59); %Basophils 0.1 % (0.0-1.0); %Eosinophils 0.2 % (0.0-10.0); %Lymphocytes 2.2 % (21.0-51.0); %Monocytes 4.8 % (0.0-10.0); %Neutrophils 92.1 % (42.0-75.0); Hematocrit 37.5 % (42.0-52.0); Hemoglobin 11.8 g/dL (14.0-18.0); Mean Corpuscular HGB CONC 31.5 g/dL (32.0-36.0); Mean Corpuscular Hemoglobin 27.4 pg (27.0-31.0); Mean Platelet Volume 11.4 fL (7.4-10.4); Platelet Count 182 10x3/uL (130-400); White Blood Cell (WBC) Count 17.3 10x3/uL (4.8-10.8)
[2022-10-11 04:26] LABS: Mean Corpuscular Volume 87.2 fl (78.0-98.0)
[2022-10-11 04:45] LABS: ALT (SGPT) 22 U/L (8-55); AST (SGOT) 76 U/L (5-34); Albumin 2.4 g/dL (3.4-4.8); Alkaline Phosphatase 190 U/L (40-110); Anion Gap 15 mmol/L (10-20); BUN (Urea Nitrogen) 22 mg/dL (8.4-25.7); Bilirubin, Total 1.7 mg/dL (0.2-1.2); Calc. Creatinine Clearance 75 mL/min (70-130); Calcium 8.6 mg/dL (7.8-10.44); Carbon Dioxide 27 mmol/L (23-31); Chloride 101 mmol/L (98-107); Estimated GFR 85; Globulin 4.1 g/dL (2.4-3.5); Glucose 206 mg/dL (83-110); Potassium 4.6 mmol/L (3.5-5.1); Protein, Total 6.5 g/dL (5.8-8.1); Sodium 138 mmol/L (136-145)
[2022-10-11] MEDS: Piperacillin/Tazobactam 3.375 GM in Sodium Chloride 0.9% 100 ML IVPB SCH ×3 (05:13→22:13)
[2022-10-11] MEDS: Levothyroxine Sodium 125 MCG TAB PO SCH (05:16)
[2022-10-11] MEDS: D5W-AA 4.25% with LYTES 1,000 ML IV SCH ×2 (08:02→20:09)
[2022-10-11] MEDS: Anastrozole 1 MG TAB PO SCH (09:08)
[2022-10-11] MEDS: Amitriptyline HCl 25 MG TAB PO SCH (09:08)
[2022-10-11] MEDS: Nebivolol HCl 5 MG TAB PO SCH (09:08)
[2022-10-11] MEDS: Pantoprazole 40 MG VIAL IVP SCH ×2 (09:08→20:24)
[2022-10-11] MEDS: Tamsulosin HCl 0.4 MG CAP PO SCH (09:08)
[2022-10-11] MEDS: Fish Oil 1,000 MG CAP PO SCH (09:09)
[2022-10-11] MEDS: Sodium Chloride 0.9% 1,000 ML IV SCH (09:09)
[2022-10-11] MEDS ORDERED: fentaNYL 50 mcg/mL 1 mL Vial SLOW IVP PRN (11:52)
[2022-10-11] MEDS: Ketorolac Tromethamine 30 MG/ML VIAL IVP SCH ×2 (13:03→17:45)
[2022-10-12] MEDS: Ketorolac Tromethamine 30 MG/ML VIAL IVP SCH ×3 (06:04→10:50)
[2022-10-12] MEDS: Levothyroxine Sodium 125 MCG TAB PO SCH (06:05)
[2022-10-12] MEDS: HumaLOG 300 UNITS/3 ML VIAL SC PRN ×3 (06:06→12:44)
[2022-10-12 06:13] LABS: #Eosinphils 0.1 thou/uL (0.0-0.7); #Monocytes 0.7 thou/uL (0.11-0.59); #Neutrophils 12.9 thou/uL (1.40-6.50); %Basophils 0.1 % (0.0-1.0); %Eosinophils 0.8 % (0.0-10.0); %Lymphocytes 3.2 % (21.0-51.0); %Neutrophils 90.3 % (42.0-75.0); Hematocrit 35.6 % (42.0-52.0); Mean Corpuscular HGB CONC 30.9 g/dL (32.0-36.0); Mean Corpuscular Hemoglobin 27.5 pg (27.0-31.0); Mean Platelet Volume 11.5 fL (7.4-10.4); Platelet Count 149 10x3/uL (130-400); RBC Distribution Width 14.2 % (11.5-14.5); White Blood Cell (WBC) Count 14.3 10x3/uL (4.8-10.8)
[2022-10-12 08:43] LABS: Albumin 2.5 g/dL (3.4-4.8)
[2022-10-12 08:44] LABS: Calcium 8.8 mg/dL (7.8-10.44); Chloride 101 mmol/L (98-107); Potassium 3.8 mmol/L (3.5-5.1); Sodium 137 mmol/L (136-145)
[2022-10-12 08:45] LABS: Globulin 3.7 g/dL (2.4-3.5); Glucose 230 mg/dL (83-110); Protein, Total 6.2 g/dL (5.8-8.1)
[2022-10-12 08:47] LABS: Anion Gap 11 mmol/L (10-20); Bilirubin, Total 1.8 mg/dL (0.2-1.2); Carbon Dioxide 29 mmol/L (23-31)
[2022-10-12 08:48] LABS: Alkaline Phosphatase 194 U/L (40-110)
[2022-10-12 08:49] LABS: BUN (Urea Nitrogen) 25 mg/dL (8.4-25.7); Calc. Creatinine Clearance 77 mL/min (70-130); Estimated GFR 86
[2022-10-12 08:50] LABS: AST (SGOT) 62 U/L (5-34)
[2022-10-12 08:51] LABS: ALT (SGPT) 22 U/L (8-55)
[2022-10-12] MEDS: D5W-AA 4.25% with LYTES 1,000 ML IV SCH ×2 (09:27→21:57)
[2022-10-12 09:53] VITALS: BMI 29.5
[2022-10-12] MEDS: Nebivolol HCl 5 MG TAB PO SCH (10:30)
[2022-10-12] MEDS: Anastrozole 1 MG TAB PO SCH (10:31)
[2022-10-12] MEDS: Fish Oil 1,000 MG CAP PO SCH (10:31)
[2022-10-12] MEDS: Amitriptyline HCl 25 MG TAB PO SCH (10:32)
[2022-10-12] MEDS: Tamsulosin HCl 0.4 MG CAP PO SCH (10:32)
[2022-10-12] MEDS: Pantoprazole 40 MG VIAL IVP SCH (10:33)
[2022-10-12] MEDS: Sodium Chloride 0.9% 1,000 ML IV SCH ×2 (12:22→21:49)
[2022-10-12 12:29] LABS: Hematocrit 34.5 % (42.0-52.0); Hemoglobin 10.8 g/dL (14.0-18.0); Mean Corpuscular HGB CONC 31.3 g/dL (32.0-36.0); Mean Corpuscular Hemoglobin 27.6 pg (27.0-31.0); Mean Platelet Volume 12.3 fL (7.4-10.4); Platelet Count 150 10x3/uL (130-400); RBC Distribution Width 14.2 % (11.5-14.5); Red Blood Cell (RBC) Count 3.92 mill/uL (4.70-6.10); White Blood Cell (WBC) Count 14.2 10x3/uL (4.8-10.8)
[2022-10-12 12:43] LABS: Prothrombin Time 23.9 sec (12.0-14.7)
[2022-10-12] MEDS: Pantoprazole 80 MG in Sodium Chloride 0.9% 100 ML IVPB SCH ×2 (13:20→22:02)
[2022-10-12] MEDS ORDERED: Phytonadione 10 MG/ML AMP SC SCH (21:30)
[2022-10-12] MEDS ORDERED: Haloperidol Lactate 5 MG/ML VIAL ONE (23:57)
[2022-10-13] MEDS ORDERED: Haloperidol Lactate 5 MG/ML VIAL IM SCH (01:00)
[2022-10-13] MEDS: Levothyroxine Sodium 125 MCG TAB PO SCH (05:00)
[2022-10-13] MEDS: HumaLOG 300 UNITS/3 ML VIAL SC PRN ×3 (05:23→22:05)
[2022-10-13] MEDS ORDERED: Pantoprazole 80 MG, Admixture Fee 1 EACH in Sodium Chloride 0.9% 100 ML IVPB SCH (07:30)
[2022-10-13] MEDS: Sodium Chloride 0.9% 1,000 ML IV SCH (07:56)
[2022-10-13] MEDS: Pantoprazole 80 MG in Sodium Chloride 0.9% 100 ML IVPB SCH (08:42)
[2022-10-13] MEDS: Amitriptyline HCl 25 MG TAB PO SCH (08:42)
[2022-10-13] MEDS: Anastrozole 1 MG TAB PO SCH (08:42)
[2022-10-13] MEDS: Fish Oil 1,000 MG CAP PO SCH (08:43)
[2022-10-13] MEDS: Tamsulosin HCl 0.4 MG CAP PO SCH (08:43)
[2022-10-13] MEDS: Nebivolol HCl 5 MG TAB PO SCH (09:15)
[2022-10-13 10:30] LABS: #Eosinphils 0.1 thou/uL (0.0-0.7); #Monocytes 1.1 thou/uL (0.11-0.59); #Neutrophils 13.5 thou/uL (1.40-6.50); %Basophils 0.1 % (0.0-1.0); %Eosinophils 0.5 % (0.0-10.0); %Lymphocytes 3.4 % (21.0-51.0); %Neutrophils 88.3 % (42.0-75.0); Hematocrit 35.5 % (42.0-52.0); Hemoglobin 10.8 g/dL (14.0-18.0); Mean Corpuscular HGB CONC 30.4 g/dL (32.0-36.0); Mean Corpuscular Hemoglobin 26.9 pg (27.0-31.0); Mean Corpuscular Volume 88.5 fl (78.0-98.0); Mean Platelet Volume 12.8 fL (7.4-10.4); Platelet Count 200 10x3/uL (130-400); RBC Distribution Width 14.3 % (11.5-14.5); Red Blood Cell (RBC) Count 4.01 mill/uL (4.70-6.10); White Blood Cell (WBC) Count 15.3 10x3/uL (4.8-10.8)
[2022-10-13 11:01] LABS: ALT (SGPT) 25 U/L (8-55); AST (SGOT) 62 U/L (5-34); Albumin 2.4 g/dL (3.4-4.8); Alkaline Phosphatase 210 U/L (40-110); Anion Gap 11 mmol/L (10-20); BUN (Urea Nitrogen) 20 mg/dL (8.4-25.7); Bilirubin, Total 2.6 mg/dL (0.2-1.2); Calc. Creatinine Clearance 83 mL/min (70-130); Calcium 8.7 mg/dL (7.8-10.44); Carbon Dioxide 26 mmol/L (23-31); Estimated GFR 88; Globulin 3.9 g/dL (2.4-3.5); Glucose 176 mg/dL (83-110); Potassium 3.9 mmol/L (3.5-5.1); Protein, Total 6.3 g/dL (5.8-8.1); Sodium 136 mmol/L (136-145)
[2022-10-13 11:05] LABS: Chloride 103 mmol/L (98-107)
[2022-10-13] MEDS: Haloperidol Lactate 5 MG/ML VIAL SLOW IVP PRN (16:50)
[2022-10-13] MEDS ORDERED: QUEtiapine 25 MG TAB PO SCH (21:00)
[2022-10-13] MEDS: Pantoprazole 40 MG VIAL IVP SCH (21:12)
[2022-10-14] MEDS: HumaLOG 300 UNITS/3 ML VIAL SC PRN (00:52)
[2022-10-14] MEDS: Haloperidol Lactate 5 MG/ML VIAL SLOW IVP PRN (00:52)
[2022-10-14] MEDS: Levothyroxine Sodium 125 MCG TAB PO SCH (06:34)
[2022-10-14 08:17] LABS: #Eosinphils 0.1 thou/uL (0.0-0.7); #Monocytes 1.1 thou/uL (0.11-0.59); #Neutrophils 12.4 thou/uL (1.40-6.50); %Basophils 0.1 % (0.0-1.0); %Eosinophils 0.9 % (0.0-10.0); %Lymphocytes 4.9 % (21.0-51.0); %Monocytes 7.7 % (0.0-10.0); %Neutrophils 85.4 % (42.0-75.0); Hematocrit 34.9 % (42.0-52.0); Hemoglobin 10.8 g/dL (14.0-18.0); Mean Corpuscular HGB CONC 30.9 g/dL (32.0-36.0); Mean Corpuscular Hemoglobin 27.1 pg (27.0-31.0); Mean Corpuscular Volume 87.5 fl (78.0-98.0); Mean Platelet Volume 12.4 fL (7.4-10.4); Platelet Count 232 10x3/uL (130-400); RBC Distribution Width 14.7 % (11.5-14.5); Red Blood Cell (RBC) Count 3.99 mill/uL (4.70-6.10); White Blood Cell (WBC) Count 14.5 10x3/uL (4.8-10.8)
[2022-10-14 08:54] LABS: ALT (SGPT) 33 U/L (8-55); AST (SGOT) 80 U/L (5-34); Albumin 2.4 g/dL (3.4-4.8); Alkaline Phosphatase 259 U/L (40-110); Anion Gap 12 mmol/L (10-20); BUN (Urea Nitrogen) 23 mg/dL (8.4-25.7); Bilirubin, Total 4.9 mg/dL (0.2-1.2); Calc. Creatinine Clearance 71 mL/min (70-130); Calcium 8.8 mg/dL (7.8-10.44); Carbon Dioxide 27 mmol/L (23-31); Chloride 101 mmol/L (98-107); Estimated GFR 79; Globulin 4.2 g/dL (2.4-3.5); Glucose 174 mg/dL (83-110); Potassium 4.3 mmol/L (3.5-5.1); Protein, Total 6.6 g/dL (5.8-8.1); Sodium 136 mmol/L (136-145)
[2022-10-14] MEDS: Nebivolol HCl 5 MG TAB PO SCH (09:41)
[2022-10-14] MEDS: Amitriptyline HCl 25 MG TAB PO SCH (09:43)
[2022-10-14] MEDS: Pantoprazole 40 MG VIAL IVP SCH (09:43)
[2022-10-14] MEDS: Fish Oil 1,000 MG CAP PO SCH (09:43)
[2022-10-14] MEDS: Tamsulosin HCl 0.4 MG CAP PO SCH (09:43)
[2022-10-14] MEDS: Anastrozole 1 MG TAB PO SCH (09:43)
[2022-10-14 15:55] VITALS: BP 107/64; TEMP 97.6
== END 2022-10-14 17:14 | disposition hospice, inpatient (51) | DRG 326 ==
LOC: ERS 20:23 → IMCU/EMU 22:51 → SJJU 10-06 16:42 → IMCU/EMU 10-07 23:34 → SURG A 10-13 14:56
PROVIDERS: ADMIT Student in an Organized Health Care Education/Training Program; ATTEND Internal Medicine
PROC: 5A09457 Assistance with Respiratory Ventilation, 24-96 Consecutive Hours, Continuous Positive Airway Pressure (ICD-10-PCS; 2022-10-06)
PROC: 4A033R1 Measurement of Arterial Saturation, Peripheral, Percutaneous Approach (ICD-10-PCS; 2022-10-08)
PROC: 0D160ZA Bypass Stomach to Jejunum, Open Approach (ICD-10-PCS; principal; 2022-10-09)
PROC: 07BD0ZX Excision of Aortic Lymphatic, Open Approach, Diagnostic (ICD-10-PCS; 2022-10-09)
PROC: 05H633Z Insertion of Infusion Device into Left Subclavian Vein, Percutaneous Approach (ICD-10-PCS; 2022-10-09)
PROC: 0DB98ZX Excision of Duodenum, Via Natural or Artificial Opening Endoscopic, Diagnostic (ICD-10-PCS; 2022-10-09)
PROC: 5A0945A Assistance with Respiratory Ventilation, 24-96 Consecutive Hours, High Flow/Velocity Cannula (ICD-10-PCS; 2022-10-10)
DX: C17.0 Malignant neoplasm of duodenum (principal); E43 Unspecified severe protein-calorie malnutrition; J96.01 Acute respiratory failure with hypoxia; G93.41 Metabolic encephalopathy; C78.7 Secondary malignant neoplasm of liver and intrahepatic bile duct; K31.1 Adult hypertrophic pyloric stenosis; K56.7 Ileus, unspecified; E87.3 Alkalosis; K91.89 Other postprocedural complications and disorders of digestive system; D68.9 Coagulation defect, unspecified; K92.2 Gastrointestinal hemorrhage, unspecified; Z51.5 Encounter for palliative care; Z66 Do not resuscitate; E11.649 Type 2 diabetes mellitus with hypoglycemia without coma; I10 Essential (primary) hypertension; E03.9 Hypothyroidism, unspecified; N40.0 Benign prostatic hyperplasia without lower urinary tract symptoms; Z79.82 Long term (current) use of aspirin; Z79.899 Other long term (current) drug therapy; Z90.49 Acquired absence of other specified parts of digestive tract; E87.6 Hypokalemia; G47.33 Obstructive sleep apnea (adult) (pediatric); Z87.891 Personal history of nicotine dependence; R47.81 Slurred speech; Z68.31 Body mass index [BMI] 31.0-31.9, adult; R53.81 Other malaise; F32.9 Major depressive disorder, single episode, unspecified; E11.65 Type 2 diabetes mellitus with hyperglycemia; K31.89 Other diseases of stomach and duodenum
CPT/HCPCS: 36415; 36416; 36600; 70450; 71045; 74018; 74174; 80048; 80053; 81001; 82533; 82805; 83605; 83735; 84100; 84443; 84484; 85025; 85610; 85730; 86850; 86900; 86901; 88305; 88341; 88342; 93005; 94660; 96374; 96375; 96376; A4314; C9113; J1100; J1630; J1650; J1815; J1885; J1940; J2272; J2370; J2405; J2543; J2550; J2704; J2765; J3010; J3430; J3475; J3480; J3490; J7042; J7050; J7120; P9045; Q9967

== ENCOUNTER 2022-10-14 17:14 | Inpatient (IN) | payer OTHER ==
[2022-10-14] MEDS ORDERED: Glycopyrrolate 0.4 MG/ 2 ML VIAL SLOW IVP PRN (19:57)
[2022-10-14] MEDS ORDERED: Scopolamine 1.5 mg/72 hour Patch TOP PRN (20:00)
[2022-10-14] MEDS ORDERED: Acetaminophen 325 MG TAB PO PRN (20:00)
[2022-10-14] MEDS ORDERED: Senokot S 8.6-50 MG TAB PO PRN (20:00)
[2022-10-14] MEDS ORDERED: Ondansetron PF 4 MG/2 ML Vial IVP PRN (20:00)
[2022-10-14] MEDS ORDERED: Haloperidol Lactate 5 MG/ML VIAL SLOW IVP PRN (20:02)
[2022-10-14] MEDS: Pantoprazole 40 MG VIAL IVP SCH (20:50)
[2022-10-14] MEDS ORDERED: QUEtiapine 25 MG TAB PO SCH (21:00)
[2022-10-15] MEDS: Lorazepam 2 MG/ML VIAL SLOW IVP PRN ×2 (01:42→13:47)
[2022-10-15] MEDS: Morphine 2 MG/ML VIAL SLOW IVP PRN ×2 (04:17→20:59)
[2022-10-15] MEDS: Levothyroxine Sodium 125 MCG TAB PO SCH (05:39)
[2022-10-15] MEDS: Pantoprazole 40 MG VIAL IVP SCH ×2 (10:11→21:11)
[2022-10-15] MEDS: Insulin Glargine 30 UNITS/0.3 ML VIAL SC SCH (10:11)
[2022-10-15] MEDS: Nebivolol HCl 5 MG TAB PO SCH (10:11)
[2022-10-15] MEDS: Lorazepam 2 MG/ML VIAL SLOW IVP SCH (21:00)
[2022-10-16] MEDS: Lorazepam 2 MG/ML VIAL SLOW IVP PRN ×2 (01:04→06:37)
[2022-10-16] MEDS: Morphine 2 MG/ML VIAL SLOW IVP PRN ×4 (02:20→22:07)
[2022-10-16] MEDS: Levothyroxine Sodium 125 MCG TAB PO SCH (06:43)
[2022-10-16] MEDS: Pantoprazole 40 MG VIAL IVP SCH ×2 (09:56→20:12)
[2022-10-16] MEDS: Insulin Glargine 30 UNITS/0.3 ML VIAL SC SCH (09:57)
[2022-10-16] MEDS: Nebivolol HCl 5 MG TAB PO SCH (09:57)
[2022-10-16] MEDS: GLYCOPYRROLATE/PF 0.2 MG/ML VIAL SLOW IVP PRN (14:44)
[2022-10-16] MEDS: Lorazepam 2 MG/ML VIAL SLOW IVP SCH (20:12)
[2022-10-17] MEDS: Morphine 2 MG/ML VIAL SLOW IVP PRN ×4 (04:42→22:19)
[2022-10-17] MEDS: Pantoprazole 40 MG VIAL IVP SCH ×2 (10:03→20:21)
[2022-10-17] MEDS: Lorazepam 2 MG/ML VIAL SLOW IVP SCH (20:20)
[2022-10-18] MEDS: Morphine 2 MG/ML VIAL SLOW IVP PRN ×4 (03:41→23:33)
[2022-10-18] MEDS: Pantoprazole 40 MG VIAL IVP SCH ×2 (08:08→20:53)
[2022-10-18] MEDS: Lorazepam 2 MG/ML VIAL SLOW IVP SCH (20:52)
[2022-10-18 21:04] VITALS: BP 111/61; TEMP 97.5
[2022-10-19] MEDS: GLYCOPYRROLATE/PF 0.2 MG/ML VIAL SLOW IVP PRN (06:04)
[2022-10-19] MEDS: Morphine 2 MG/ML VIAL SLOW IVP PRN (06:04)
[2022-10-19] MEDS: Pantoprazole 40 MG VIAL IVP SCH (10:17)
== END 2022-10-19 10:29 | disposition expired | DRG 951 ==
LOC: SURG A 17:14 → 2NO 18:27 → UNDOADMIN 18:27
PROVIDERS: ADMIT Family Medicine; ATTEND Family Medicine
PROC: 5A09357 Assistance with Respiratory Ventilation, Less than 24 Consecutive Hours, Continuous Positive Airway Pressure (ICD-10-PCS; principal; 2022-10-15)
DX: Z51.5 Encounter for palliative care (principal); C17.0 Malignant neoplasm of duodenum; R53.1 Weakness; R41.0 Disorientation, unspecified; Z66 Do not resuscitate; R63.4 Abnormal weight loss; R45.1 Restlessness and agitation; E88.09 Other disorders of plasma-protein metabolism, not elsewhere classified; E11.9 Type 2 diabetes mellitus without complications; M48.00 Spinal stenosis, site unspecified; E03.9 Hypothyroidism, unspecified; N40.0 Benign prostatic hyperplasia without lower urinary tract symptoms; D63.0 Anemia in neoplastic disease; I10 Essential (primary) hypertension; R34 Anuria and oliguria; G89.3 Neoplasm related pain (acute) (chronic); Z87.891 Personal history of nicotine dependence; Z79.890 Hormone replacement therapy
CPT/HCPCS: 36416; C9113; J1815; J2060; J2272; J3490